=== PATIENT | male | born 1990 | race African-American/Black ===

== ENCOUNTER 2018-02-15 16:22 | Emergency (ER) | payer OTHER ==
[2018-02-15 16:44] VITALS: BP 128/60; PULSE 62; TEMP 98.2; BMI 25.0
[2018-02-15] MEDS ORDERED: DIPHTH,PERTUSS(ACELL),TET 0.5 ML DISP.SYRIN IM ONE (17:18)
--- NOTE | 2018-02-15 17:21 | PDOC ---
History of Present Illness - General Chief Complaint: Laceration Stated Complaint: LAC - History of Present Illness Initial Comments: 27-year-old healthy male presents for evaluation of a laceration on the tip of his left second finger after he touched the table saw at was still turned on. He has no comorbidities he is unsure of his current tetanus status is mild discomfort at the area of laceration no other associated symptoms. 02/15/18 17:19 Past History - Past Medical History Allergies/Adverse Reactions: Allergies Allergy/AdvReac Type Severity Reaction Status Date / Time No Known Allergies Allergy Verified 02/15/18 16:42 Home Medications: Ambulatory Orders NK [No Known Home Medication] 02/15/18 COPD: No - Suicide/Smoking/Psychosocial Hx Smoking History: Never smoked Information on smoking cessation initiated: No Hx Alcohol Use: No Drug/Substance Use Hx: No Substance Use Type: None Review of Systems - Review of Systems Musculoskeletal: Yes: See HPI All Other Systems: Reviewed and Negative *Physical Exam - Vital Signs Last Vital Signs Temp Pulse Resp BP Pulse Ox 98.2 F 62 18 128/60 100 02/15/18 16:42 02/15/18 16:42 02/15/18 16:42 02/15/18 16:42 02/15/18 16:42 - Physical Exam Comments: There is a subcentimeter laceration exposing subcutaneous fat at the very tip of the left index finger with slight nail involvement. FDS and FDP overwork independently. There is no malrotation or gross sensorimotor deficits. 02/15/18 17:20 ED Treatment Course - RADIOLOGY Radiology Studies Ordered: Category Date Time Status FINGER(S) LEFT [RAD] Stat Radiology 02/15/18 17:18 Ordered Medical Decision Making - Medical Decision Making 02/15/18 17:20 I'll get an x-ray to rule out an open fracture and do a primary closure. He has an open fracture I will give a dose of IV antibiotics and send him home on oral 02/15/18 17:49 No fracture on radiograph today aseptically digital block was introduced. This was tolerated well the wound was copiously irrigated with normal saline and explored to its base in a bloodless field without any evidence of foreign body. The edges were approximated and closed with 2 simple 5-0 nylon sutures dry sterile dressing was placed *DC/Admit/Observation/Transfer Diagnosis at time of Disposition: Laceration Diagnosis at time of Disposition: (Ruled Out): Dehiscence of laceration repair - Discharge Dispostion Disposition: HOME Condition at time of disposition: Stable Decision to Admit order: No - Referrals Referrals: Ulises Clifford [Primary Care Provider] - - Patient Instructions Printed Discharge Instructions: DI for Laceration Repair Additional Instructions: A follow-up with hand surgery in the next 1-2 days for further evaluation treatment options. Return to the emergency room should her symptoms worsen, if there is any redness, drainage, swelling, or increased pain to the finger. Or he can return to the emergency room in 10 days for suture removal. Keep the wound clean and dry for the next 48 hours after 48 hours you may wash with soap and water and leave the area open to air. - Post Discharge Activity
== END 2018-02-15 18:00 | disposition home or self-care (01) ==
LOC: JERFT 16:22
PROC: 0HQGXZZ Repair Left Hand Skin, External Approach (ICD-10-PCS; principal; 2018-02-15)
DX: S61.211A Laceration without foreign body of left index finger without damage to nail, initial encounter (principal); T81.31XA Disruption of external operation (surgical) wound, not elsewhere classified, initial encounter
CPT/HCPCS: 73140-TC-LT-FY; 90715; 99282-25